=== PATIENT | female | born 1980 | race Asian ===

== ENCOUNTER 2022-01-24 12:06 | Emergency (ER) | payer MEDICAID ==
[~2022-01-24] VITALS: Ht 152.4 cm; Wt 71.7 kg
[2022-01-24 12:15] VITALS: BP_SYST 155
--- NOTE | 2022-01-24 12:15 | NUR ---
Patient triaged and placed in waiting room. VSS and patient appears in no acute distress at this time. Accompanied by SELF, awaiting available bed, and MD notified of need for MSE.
[2022-01-24 14:58] LABS: BASOPHILS % (AUTO) 0.5 % (0.0-2.0); EOSINOPHILS # (AUTO) 0.1 K/uL (0.0-0.4); EOSINOPHILS % (AUTO) 0.8 % (0.0-4.0); HEMATOCRIT 35.5 % (36-48); LYMPHOCYTES # (AUTO) 1.8 K/uL (1.0-5.5); LYMPHOCYTES % (AUTO) 26.1 % (20.5-51.5); MEAN CORPUSCULAR VOLUME 66 fL (79.0-98.0); MONOCYTES # (AUTO) 0.4 K/uL (0.0-1.0); MONOCYTES % (AUTO) 5.9 % (1.7-9.3); NEUTROPHILS # (AUTO) 4.6 K/uL (1.8-7.7); NEUTROPHILS % (AUTO) 66.7 % (40.0-70.0); PLATELET COUNT (AUTO) 417 K/uL (130-430); RED BLOOD CELL COUNT(AUTO) 5.41 MIL/uL (4.2-6.2); RED CELL DISTRIBUTION WIDTH 17.3 % (9.0-15.0); WHITE BLOOD COUNT (AUTO) 6.9 K/uL (4.8-10.8)
--- NOTE | 2022-01-24 15:12 | NUR ---
ER DR. WATTS EXAMINING PT
--- NOTE | 2022-01-24 16:44 | NUR ---
Placed in room 3 . Placed on manager cardiac, blood pressure machine and pulse oximeter. To gown for exam. Side rails up. Report given to DOC BERKOWITZ.
[2022-01-24 16:47] LABS: ANION GAP 9 (5-15); CALCIUM 9.1 mg/dL (8.4-11.0); CHLORIDE 102 mmol/L (98-107); CREATININE 0.86 mg/dL (0.55-1.30); GLUCOSE 113 mg/dL (70-99); POTASSIUM 4.3 mmol/L (3.5-5.1); UREA NITROGEN, BLOOD 14 mg/dL (8-21)
--- NOTE | 2022-01-24 16:52 | NUR ---
Pt come from home, no PMH. Pt here c/o middle chest pressure pain x 2 today at 0430 and 0830. Took 2x aspirin @324 mg, pt stated pain relieved. Denies cp, sob, n/v, abd pain, blurry vision, WYNNE at this time. Pt is AOx 4, no acute distress in room air, VS stable. Pending MD samaniego
[2022-01-24 17:02] LABS: ALANINE AMINOTRANSFERASE 24 U/L (12-78); ALBUMIN 3.6 g/dL (3.4-4.8); ASPARTATE AMINOTRANSFERASE 18 U/L (10-37); TOTAL BILIRUBIN 0.1 mg/dL (0.0-1.0)
[2022-01-24 17:22] LABS: GFR AFRICAN AMERICAN 94 mL/min (>90)
[2022-01-24] MEDS ORDERED: OMEP20CA15 PO (17:43)
[2022-01-24 18:03] VITALS: BP_SYST 132
== END 2022-01-24 18:06 | disposition home or self-care (01) ==
LOC: SED 12:06
DX: K20.90 Esophagitis, unspecified without bleeding (principal); R07.2 Precordial pain; F10.120 Alcohol abuse with intoxication, uncomplicated; Z79.899 Other long term (current) drug therapy; Y90.6 Blood alcohol level of 120-199 mg/100 ml
CPT/HCPCS: 36415; 71045; 80053; 81025; 84484; 84702; 85025; 93005; 99285